=== PATIENT | female | born 1975 | race Caucasian/White ===

== ENCOUNTER 2017-05-27 21:42 | Emergency (ER) | payer BC ==
[~2017-05-27 21:42] MED LIST: ALBUTEROL17 GM; DITROPAN5 MG DOB; HYDROXYZINE HCL25 M1 DOB; VENTOLIN5 MG/ML IH
[2017-05-27] MEDS ORDERED: MIRENA (21:54)
[2017-05-27 22:39] LABS: URINE SOURCE CLEAN CATCH
[2017-05-27 22:41] LABS: URINE APPEARANCE CLEAR; URINE BILIRUBIN NEG (NEG); URINE BLOOD NEG (NEG); URINE COLOR YELLOW; URINE GLUCOSE NEG (NORM); URINE KETONE NEG (NEG); URINE LEUKOCYTE ESTERASE NEG (NEG); URINE NITRATE NEG (NEG); URINE PROTEIN NEG (NEG); URINE SPECIFIC GRAVITY >=1.030 (1.003-1.035); URINE UROBILINOGEN 0.2 MG/DL (NORM)
[2017-05-27 22:43] LABS: MICRO INDICATED? NO
== END 2017-05-27 23:36 | disposition left against medical advice (07) ==
LOC: SED 21:42
PROVIDERS: Nurse Practitioner Family
DX: R30.0 Dysuria (principal); F17.210 Nicotine dependence, cigarettes, uncomplicated; Z87.440 Personal history of urinary (tract) infections; Z98.890 Other specified postprocedural states
CPT/HCPCS: 81003; 99283